=== PATIENT | male | born 2000 | race Hispanic/Latino ===

== ENCOUNTER 2024-04-15 04:26 | Emergency (ER) | payer OTHER ==
[~2024-04-15] VITALS: Ht 167.6 cm; Wt 93.9 kg
[2024-04-15 04:32] VITALS: TEMP 99.9
--- NOTE | 2024-04-15 04:44 | EKG ---
[facility] Test Date: 2024-04-15 Test Time: 04:41:37 Pat Name: CALLY MILLER Department: ED Room: Gender: M Rubber Down: 1346 : 2000 Requested By: FINN CROCKETT Order Number: [id number] Reading MD: Frida Goldman Measurements Intervals [place] Rate: 78 P: 25 [place]: 166 QRS: 28 QRSD: 101 T: -10 QT: 358 QTc: 407 Interpretive Statements Sinus rhythm No previous ECG available for comparison Electronically Signed On 04-15-2024 16:10:00 MOVIE EDITOR by Frida Goldman Please click the below link to view image of tracing.
[2024-04-15 05:06] LABS: BASOPHILS # (AUTO) 0.04 K/uL (0.00-0.20); BASOPHILS % (AUTO) 0.4 % (0.0-5.0); EOSINOPHILS # (AUTO) 0.03 K/uL (0.00-0.70); EOSINOPHILS % (AUTO) 0.3 % (0.0-8.0); HEMATOCRIT 43.7 % (42-54); IMMATURE GRANULOCYTE ABSOLUTE 0.02 K/uL (0-1); LYMPHOCYTES # (AUTO) 1.5 K/uL (1.0-4.8); LYMPHOCYTES % (AUTO) 15.6 % (21.0-51.0); MEAN CORPUSCULAR HEMOGLOBIN 26.2 pg (27.0-33.0); MEAN CORPUSCULAR HGB CONC 33.6 g/dL (32.0-36.0); MEAN CORPUSCULAR VOLUME 77.8 fL (79-99); MONOCYTES # (AUTO) 0.6 K/uL (0.1-1.0); MONOCYTES % (AUTO) 6.7 % (3.0-13.0); NEUTROPHILS # (AUTO) 7.2 K/uL (1.8-7.7); NEUTROPHILS % (AUTO) 76.8 % (40.0-77.0); PLATELET COUNT (AUTO) 345 K/uL (130-400); RED BLOOD CELL COUNT(AUTO) 5.62 MIL/uL (4.50-6.20); RED CELL DISTRIBUTION WIDTH 12.5 % (11.0-15.5); WHITE BLOOD COUNT (AUTO) 9.4 K/uL (4.8-10.8)
[2024-04-15 05:25] LABS: CREATININE 0.8 mg/dL (0.5-1.3); POTASSIUM 3.9 mmol/L (3.5-5.1)
[2024-04-15 05:27] LABS: B-TYPE NATRIURETIC PEPTIDE 11 pg/mL (0-100)
[2024-04-15] MEDS ORDERED: AZIT500T4 PO (05:55)
[2024-04-15] MEDS ORDERED: NAPR-1505 PO (05:55)
--- NOTE | 2024-04-15 05:55 | ERN ---
General Chief Complaint: Chest Pain Stated Complaint: CHEST PAIN X 1 DAY Time Seen by MD: 04:27 Source: patient, police History of Present Illness Initial Comments PATIENT IS A 23-YEAR-OLD MALE COMING IN TO BE EVALUATED FOR CHEST PRESSURE CHEST PAIN. PATIENT STATES THAT THIS HAS BEEN ONGOING FOR A COUPLE OF DAYS. HE ALSO STATES HE HAS BEEN EXERCISING AND BELIEVES IT MIGHT HAVE BEEN PART OF THE REASON WHY HE WAS CHEST PAIN. ANOTHER POSSIBILITY HE STATES IT IS A HE COULD NOT BE COVID PAIN BECAUSE HE HAS HAD SOMETHING SIMILAR IN THE PAST. Past Medical History Past Medical History: No Pertinent History Past Surgical History: Cholecystectomy ROS Dictation CONSTITUTIONAL: NO CHILLS, NO FEVER, NO WEAKNESS, NO DIAPHORESIS, NO MALAISE. HEAD/FACE: NO SIGNS OF TRAUMA. EENT: NO EYE PAIN, NO BLURRED VISION, NO TEARING, NO DOUBLE VISION, NO EAR PAIN, NO EAR DISCHARGE, NO NOSE PAIN, NO NASAL CONGESTION, NO THROAT PAIN, NO THROAT SWELLING, NO MOUTH PAIN. RESPIRATORY: NO COUGH, NO ORTHOPNEA, NO SOB, NO STRIDOR, NO WHEEZING. CARDIOVASCULAR: CHEST PAIN, NO EDEMA, NO PALPITATIONS, NO SYNCOPE. GASTROINTESTINAL/ABDOMINAL: NO ABDOMINAL PAIN, NO CONSTIPATION, NO DIARRHEA, NO NAUSEA, NO VOMITING. GENITOURINARY: NO ABNORMAL DISCHARGE, NO DYSURIA, NO FREQUENT URINATION, NO HEMATURIA. NO COMPLAINTS OF PAIN IN THE GENITALS. MUSCULOSKELETAL: NO BACK PAIN, NO GOUT, NO JOINT PAIN, NO JOINT SWELLING, NO MUSCLE PAIN, NO MUSCLE STIFFNESS, NO NECK PAIN. INTEGUMENTARY: NO CHANGE IN COLOR, NO CHANGE IN HAIR/NAILS, NO DRYNESS, NO LESION, NO LUMPS, NO RASH. NEUROLOGICAL/PSYCH: NO ANXIETY, NOT DEPRESSED, NO EMOTIONAL PROBLEM, NO HEADACHE, NO NUMBNESS, NO PRE-EXISTING DEFICIT, NO HISTORY OF SEIZURES, NO TREMORS, NO WEAKNESS. HEMATOLOGIC/LYMPHATIC: NOT ANEMIC, NO HISTORY OF BLOOD CLOTS, NO APPARENT BLEEDING, NO BRUISING, GLANDS NOT SWOLLEN. ALL SYSTEMS NEGATIVE, EXCEPT NOTED. Physical Exam Physical Exam Dictation VITAL SIGNS: REVIEWED. GENERAL APPEARANCE: ALERT, ORIENTED X3, NO ACUTE DISTRESS, OBESE. HEAD AND FACE: NON-TRAUMATIC. EYES: PERRL, PINK CONJUNCTIVAS, EYELID NO TRAUMA, ANTERIOR CHAMBER CLEAR. EARS: PINNAS INTACT AND NO SIGNS OF TRAUMA OR ERYTHEMA. EAR CANALS CLEAR AND NO DISCHARGE. TMS NO ERYTHEMA. NOSE: NO DISCHARGE, NO BLEEDING. OROPHARYNX: MOUTH NORMAL, TEETH NO CARIES, TONGUE PINK. PHARYNX CLEAR, NO ERYTHEMA. TONSILS NO EXUDATES, NO ABSCESSES NOTED. MUCOUS MEMBRANE MOIST. NECK: SUPPLE, NON-TENDER, NO THYROMEGALY, NO MASSES, NO JVD, NO BRUITS. BREAST: DEFERRED. CHEST: TENDERNESS, NO CREPITUS, NO PARADOXICAL MOVEMENT, NO RETRACTIONS. LUNGS: CLEAR, WELL-VENTILATED, SYMMETRIC, NO RALES, NO WHEEZING, NO RHONCHI, NO STRIDOR, GOOD BREATH SOUNDS BILATERALLY. HEART: REGULAR RATE, REGULAR RHYTHM, NO MURMUR, NO GALLOPS. VASCULAR: NO PERIPHERAL EDEMA. ABDOMEN: SOFT, POSITIVE BOWEL SOUNDS, NONDISTENDED, NO GUARDING, NONTENDER, NO REBOUND, NO MASSES NO HEPATOMEGALY, NO SPLENOMEGALY, NO CHILD'S SIGN, NO HERNIAS. RECTAL: DEFERRED. GENITAL: DEFERRED. NEUROLOGICAL: NORMAL SPEECH, GROSS MOTOR FUNCTION INTACT, GROSS SENSORY FUNCTION INTACT. MUSCULOSKELETAL: NECK NONTENDER, FULL RANGE OF MOTION, BACK NONTENDER, FULL RANGE OF MOTION. EXTREMITIES: NONTENDER, FULL RANGE OF MOTION. SKIN: COLOR PINK, DRY, NO TURGOR, NO RASH, NO LACERATIONS, NO ABRASIONS, NO CONTUSIONS. LYMPHATICS: DEFERRED. Results Laboratory and Microbiology Lab and Micro Result Laboratory Tests Test 04/15/24 04:46 White Blood Count 9.4 K/uL (4.8-10.8) Red Blood Count 5.62 MIL/uL (4.50-6.20) Hemoglobin 14.7 g/dL (14.0-18.0) Hematocrit 43.7 % (42-54) Mean Corpuscular Volume 77.8 fL (79-99) L Mean Corpuscular Hemoglobin 26.2 pg (27.0-33.0) L Mean Corpuscular Hemoglobin Concent 33.6 g/dL (32.0-36.0) Red Cell Distribution Width 12.5 % (11.0-15.5) Platelet Count 345 K/uL (130-400) Mean Platelet Volume 8.6 fL (7.5-10.5) Immature Granulocyte % (Auto) 0.2 % (0-1) Neutrophils (%) (Auto) 76.8 % (40.0-77.0) Lymphocytes (%) (Auto) 15.6 % (21.0-51.0) L Monocytes (%) (Auto) 6.7 % (3.0-13.0) Eosinophils (%) (Auto) 0.3 % (0.0-8.0) Basophils (%) (Auto) 0.4 % (0.0-5.0) Neutrophils # (Auto) 7.2 K/uL (1.8-7.7) Lymphocytes # (Auto) 1.5 K/uL (1.0-4.8) Monocytes # (Auto) 0.6 K/uL (0.1-1.0) Eosinophils # (Auto) 0.03 K/uL (0.00-0.70) Basophils # (Auto) 0.04 K/uL (0.00-0.20) Absolute Immature Granulocyte (auto 0.02 K/uL (0-1) Nucleated Red Blood Cells 0.0 % (0.0-0.19) Sodium Level 138 mmol/L (136-145) Potassium Level 3.9 mmol/L (3.5-5.1) Chloride Level 102 mmol/L (101-111) Carbon Dioxide Level 29 mmol/L (21-32) Blood Urea Nitrogen 8 mg/dL (7-18) Creatinine 0.8 mg/dL (0.5-1.3) Glomerular Filtration Rate Calc 126 mL/min (>90) Random Glucose 94 mg/dL (70-105) Total Calcium 9.1 mg/dL (8.5-10.1) Total Creatine Kinase 59 U/L (21-232) Troponin I < 0.05 ng/mL (0.00-0.05) B-Type Natriuretic Peptide 11 pg/mL (0-100) Labs Reviewed?: Yes EKG/XRAY/US/CT/MRI EKG Comment 04/15/2024 TIME 4:41 A.M. VENTRICULAR RATE 78 SINUS RHYTHM [place] [address] WAVE ELEVATION OR DEPRESSION X-RAY Comment CHEST X-RAY-RIGHT LUNG PERIBRONCHIAL CONGESTION SUGGESTIVE OF WALKING PNEUMONIA MDM MDM: DIFFERENTIAL DIAGNOSIS: CHEST PAIN, COSTOCHONDRITIS, WALKING PNEUMONIA, BRONCHITIS PATIENT IS A 23-YEAR-OLD MALE COMING IN TO BE EVALUATED FOR CHEST PRESSURE CHEST DISCOMFORT. PATIENT DOES STATE THAT HE HAS HAD SOMETHING SIMILAR IN THE PAST WHEN HE HAD COVID. CHEST X-RAY DISCLOSE RIGHT LUNG PERIBRONCHIAL CONGESTION SUGGESTIVE OF BRONCHITIS VERSUS WALKING PNEUMONIA. LABORATORY WORKUP NEGATIVE FOR ACUTE FINDINGS. PATIENT WILL BE DISCHARGED WITH A DIAGNOSIS OF WALKING PNEUMONIA ANTIBIOTICS WILL BE PROVIDED. ED Course Orders Procedure Category Date Status Time Vital Signs Per CPOE 04/15/24 Transmitted Routine 04:32 B-Type Natriuretic LAB 04/15/24 Complete Peptide 04:32 Chest 1vw RAD 04/15/24 Taken 04:32 12 Lead Ekg Tracing- EKG 04/15/24 Complete Technical 04:32 Oxygen By Nc/Pulse Ox CPOE 04/15/24 Transmitted 04:32 Maintain Iv CPOE 04/15/24 Transmitted 04:32 Iv Insertion CPOE 04/15/24 Transmitted 04:32 Cardiac Monitoring CPOE 04/15/24 Transmitted 04:32 Pulse Oximetry With CPOE 04/15/24 Transmitted Vs And Prn 04:32 Cbc With Differential LAB 04/15/24 Complete 04:32 Activity: Br W/Brp CPOE 04/15/24 Transmitted With Assist 04:32 Creatine Kinase, Total LAB 04/15/24 Complete 04:32 Urinalysis Profile LAB 04/15/24 Logged 04:32 Troponin Poc Order LAB 04/15/24 Complete Only 04:32 Bedside Troponin-I LAB.ER 04/15/24 In Process (Poc) 04:32 Basic Metabolic Panel LAB 04/15/24 Complete 04:32 Vital Signs Date Time Temp Pulse Resp B/P (MAP) Pulse Ox O2 Delivery O2 Flow Rate FiO2 04/15/24 04:32 99.9 98 20 135/58 98 Room Air 0 04/15/24 04:31 99.9 98 20 135/58 98 Room Air* 0 21 DX & DISP Disposition: Discharge Departure Impression: Primary Impression: Walking pneumonia Additional Impressions: Costochondritis, Chest wall pain Condition: Stable Scripts Naproxen (Naproxen) 375 Mg Tablet.dr 375 MG PO BID for 7 Days, #14 TAB Prov: FINN CROCKETT MD 04/15/24 Azithromycin (Azithromycin) 500 Mg Tablet 1 TAB PO DAILY for 5 Days, #5 TAB 0 Refills Prov: FINN CROCKETT MD 04/15/24 Additional Instructions: FOLLOW-UP WITH PRIMARY CARE PROVIDER IN 1 TO 2 DAYS. TAKE MEDICATIONS DIRECTED HERE IN THE EMERGENCY ROOM. OKAY TO CONTINUE HOME MEDICATIONS UNLESS OTHERWISE DISCUSSED DURING YOUR VISIT IN THE EMERGENCY ROOM TODAY. RETURN TO YOUR NEAREST EMERGENCY ROOM IF SYMPTOMS WORSEN OR IF THERE IS NO IMPROVEMENT. CALL 911 IF YOU NEED IMMEDIATE ASSISTANCE. TAKE TYLENOL [id number] NEEDED AND IF NO CONTRAINDICATIONS ARE PRESENT. INCREASE ORAL HYDRATION. A WOUND CULTURE OR URINE CULTURE WAS ORDERED HERE IN THE EMERGENCY ROOM DEPARTMENT PLEASE FOLLOW-UP WITH PRIMARY CARE PROVIDER AND ADVISE THEM TO GET REPEAT PORTS FROM OUR FACILITY. IF YOU HAD ANY BAILEY WRAP/SPLINTS THAT WERE APPLIED HERE, PLEASE DO NOT REMOVE THEM UNTIL YOU SEE YOUR PRIMARY CARE OR SPECIALTY. REFERRALS: Referrals: NONE (PCP) LUIS LYONS MD Time of Disposition: 05:53 FINN CROCKETT MD Apr 15, 2024 05:55
[2024-04-15] MEDS: dexaMETHasone SOD PHOSPHATE 4 MG/ML 1ML VIAL IV ONE (06:19)
[2024-04-15] MEDS: ketOROlac 15MG/ML VIAL (15MG/ML) IV ONE (06:19)
[2024-04-15 06:42] VITALS: BP 128/62; PULSE 88; RESP 18; O2SAT 99
--- NOTE | 2024-04-15 09:09 | HMCIMG ---
CHEST 1VW REASON: CHEST PAIN COMPARISON: None FINDINGS: Single view of the chest was obtained. Lungs are clear. Heart size is normal. There is no pulmonary vascular congestion. Mediastinum and bony thorax appear unremarkable. IMPRESSION: 1. Normal single view chest x-ray.
== END 2024-04-15 06:44 ==
LOC: EEVIPCON 04:26 → EDH 04:26
DX: M94.0 Chondrocostal junction syndrome [Tietze] (principal); J18.9 Pneumonia, unspecified organism; Z90.49 Acquired absence of other specified parts of digestive tract
CPT/HCPCS: 99285; 96374; 71045; 96375; 82550; 84484; 80048; 83880; 85025; 36415; 93005; J1100; J1885